=== PATIENT | male | born 1985 | race Two or more races ===

== ENCOUNTER 2018-08-09 16:39 | Emergency (ER) | payer OTHER ==
[~2018-08-09] VITALS: Ht 175.3 cm; Wt 80.3 kg
== END 2018-08-09 20:47 | disposition home or self-care (01) ==
LOC: ER 16:39
DX: R22.43 Localized swelling, mass and lump, lower limb, bilateral (principal)

== ENCOUNTER 2018-08-22 16:36 | Emergency (ER) | payer OTHER ==
[~2018-08-22] VITALS: Ht 170.2 cm; Wt 74.8 kg
[2018-08-22] MEDS ORDERED: CLARITIN10 M1 (16:46)
[2018-08-22] MEDS ORDERED: SKELAXIN800 MG PO (22:46)
== END 2018-08-23 00:44 | disposition home or self-care (01) ==
LOC: ER 16:36
DX: S13.4XXA Sprain of ligaments of cervical spine, initial encounter (principal); S30.0XXA Contusion of lower back and pelvis, initial encounter; V49.9XXA Car occupant (driver) (passenger) injured in unspecified traffic accident, initial encounter; Y93.89 Activity, other specified; Y92.488 Other paved roadways as the place of occurrence of the external cause; Y99.8 Other external cause status

== ENCOUNTER 2023-06-18 05:07 | Emergency (ER) | payer OTHER ==
[~2023-06-18] VITALS: Ht 175.3 cm; Wt 94.8 kg
[~2023-06-18 05:07] MED LIST: CLARITIN10 M1; SKELAXIN800 MG PO
== END 2023-06-18 07:27 | disposition home or self-care (01) ==
LOC: ER 05:07
DX: K29.70 Gastritis, unspecified, without bleeding (principal); Z88.6 Allergy status to analgesic agent